=== PATIENT | male | born 1970 | race Hispanic/Latino ===

== ENCOUNTER 2021-10-10 18:31 | Inpatient (IN) | payer BC ==
[~2021-10-10] VITALS: Ht 165.1 cm; Wt 80.1 kg
[2021-10-10 19:51] LABS: APPEARANCE,URINE Cloudy (CLEAR); BILIRUBIN,URINE Negative (NEGATIVE); COLOR,URINE Dark Yellow (YELLOW); GLUCOSE, URINE (UA) Negative (NEGATIVE); KETONES,URINE 15 mg/dL (NEGATIVE); LEUKOCYTE ESTERASE ,URINE Small (NEGATIVE); NITRATE,URINE Negative (NEGATIVE); OCCULT BLOOD,URINE Negative (NEGATIVE); PH,URINE 5.5 (5.0-8.0); PROTEIN,URINE POS 1+ mg/dL (NEGATIVE)
[2021-10-10 20:00] LABS: AMPHET/METH SCREEN,URINE NEGATIVE (NEGATIVE); BARBITURATE SCREEN, URINE NEGATIVE (NEGATIVE); BENZODIAZEPINES SCREEN,URINE NEGATIVE (NEGATIVE); CANNABINOID SCREEN,URINE NEGATIVE (NEGATIVE); COCAINE SCREEN,URINE NEGATIVE (NEGATIVE); OPIATE SCREEN,URINE NEGATIVE (NEGATIVE); PHENCYCLIDINE SCREEN,URINE NEGATIVE (NEGATIVE)
[2021-10-10 20:00] LABS: BASOPHILS % (AUTO) 0.3 % (0.0-5.0); EOSINOPHILS % (AUTO) 0.8 % (0.0-8.0); HEMATOCRIT 27.2 % (42-54); LYMPHOCYTES % (AUTO) 11.1 % (21.0-51.0); MEAN CORPUSCULAR HEMOGLOBIN 19.8 pg (27.0-33.0); MEAN CORPUSCULAR HGB CONC 28.7 g/dL (32.0-36.0); MEAN CORPUSCULAR VOLUME 69.2 fL (79-99); MONOCYTES % (AUTO) 8.1 % (3.0-13.0); NEUTROPHILS % (AUTO) 79.2 % (40.0-77.0); PLATELET COUNT (AUTO) 463 K/uL (130-400); RED BLOOD CELL COUNT(AUTO) 3.93 MIL/uL (4.50-6.20); RED CELL DISTRIBUTION WIDTH 17.8 % (11.0-15.5); WHITE BLOOD COUNT (AUTO) 9.2 K/uL (4.8-10.8)
[2021-10-10 20:01] LABS: BACTERIA,URINE Few /HPF (None Seen); MUCUS,URINE Moderate LPF (None Seen); RBC,URINE 0-1 /HPF (0-1); SQUAMOUS EPITHELIAL CELL,UR Moderate /HPF (0-2)
[2021-10-10 20:18] LABS: CARBON DIOXIDE 32 mmol/L (21-32); CHLORIDE 103 mmol/L (101-111); CREATININE 1.3 mg/dL (0.5-1.5); GLUCOSE,RANDOM 111 mg/dL (70-105); POTASSIUM 3.6 mmol/L (3.5-5.1); SODIUM SERUM 139 mmol/L (136-145); UREA NITROGEN, BLOOD 18 mg/dL (7-18)
[2021-10-10 20:19] LABS: GLOMERULAR FILTR. RATE CALC 62 mL/min (>60)
[2021-10-10 20:23] LABS: ALANINE AMINOTRANSFERASE 18 U/L (12-78); ALBUMIN 3.4 g/dL (3.5-5.0); ASPARTATE AMINOTRANSFERASE 18 U/L (10-37); BILIRUBIN,TOTAL 0.4 mg/dL (0.2-1.0); CREATINE KINASE, TOTAL 41 U/L (21-232); TOTAL PROTEIN, SERUM 7.3 g/dL (6.0-8.3)
[2021-10-10 20:26] LABS: LIPASE < 50 U/L (114-286)
[2021-10-10] MEDS ORDERED: HYDRALAZINE 20MG/ML VIAL IV PRN (21:30)
[2021-10-10] MEDS ORDERED: HYDROCODONE/ACETAMINOPHEN 5/325 MG TAB PO PRN ×2 (21:30)
[2021-10-10] MEDS ORDERED: ONDANSETRON 4MG INJ IV PRN (21:30)
[2021-10-10] MEDS ORDERED: MAG/ALUM/SIMETH 30 ML UDCUP PO PRN (21:30)
[2021-10-10] MEDS ORDERED: DIPHENHYDRAMINE HCL 25 MG CAPSULE PO PRN (21:30)
[2021-10-10] MEDS ORDERED: LACTULOSE 20 GM/30 ML UDCUP PO PRN (21:30)
[2021-10-10] MEDS ORDERED: NITROGLYCERIN 0.4 MG SL TAB SL PRN (21:30)
[2021-10-10] MEDS ORDERED: GUAIFENESIN-DM 200/20 MG 10 ML PO PRN (21:30)
[2021-10-10] MEDS: 0.9%NACL 1000ML 1,000 ML IV SCH (21:59)
[2021-10-10 22:55] LABS: % IRON SATURATION 2.6 % (30-44)
[2021-10-11] MEDS ORDERED: GADOTERATE MEGLUMINE 10 MMOL/20 ML VIAL IV ONE (06:50)
[2021-10-11] MEDS: INSULIN HUMULIN R 100 UNIT/ML 3ML SQ SCH ×4 (07:30→20:25)
[2021-10-11 08:54] LABS: HEMOGLOBIN A1C 6.9 % (4.0-6.0)
[2021-10-11] MEDS: FAMOTIDINE 20MG VIAL IV SCH ×2 (08:54→20:05)
[2021-10-11 08:55] LABS: CHOLESTEROL 147 mg/dL (<200); HDL CHOLESTEROL 34 mg/dL (29-71); LDL DIRECT 93 mg/dL (0-99); TRIGLYCERIDES 108 mg/dL (30-200)
[2021-10-11 09:37] VITALS: BP 144/83
[2021-10-11] MEDS ORDERED: ASPIRIN 81 MG EC TAB PO SCH (10:00)
[2021-10-11] MEDS ORDERED: CLOPIDOGREL 75MG TAB PO SCH (10:00)
[2021-10-11] MEDS: 0.9%NACL 1000ML 1,000 ML IV SCH ×3 (10:10→20:05)
[2021-10-11 11:20] VITALS: BP 133/77
[2021-10-11 15:42] VITALS: BP 137/90
[2021-10-11 19:00] VITALS: BP 132/81
[2021-10-11] MEDS ORDERED: IOHEXOL 350 MG/ML 100ML INFUS..BTL IV ONE (19:33)
[2021-10-11] MEDS: ATORVASTATIN 40 MG TABLET PO SCH (20:05)
[2021-10-11] MEDS ORDERED: ATORVASTATIN 20 MG TABLET PO SCH (21:00)
[2021-10-12] VITALS: BP 144/88
[2021-10-12 04:00] VITALS: BP 142/85
[2021-10-12 06:12] LABS: BASOPHILS % (AUTO) 0.3 % (0.0-5.0); HEMATOCRIT 23.9 % (42-54); LYMPHOCYTES % (AUTO) 16.2 % (21.0-51.0); MEAN CORPUSCULAR HGB CONC 29.3 g/dL (32.0-36.0); MEAN CORPUSCULAR VOLUME 68.3 fL (79-99); MONOCYTES % (AUTO) 8.6 % (3.0-13.0); NEUTROPHILS % (AUTO) 72.5 % (40.0-77.0); PLATELET COUNT (AUTO) 453 K/uL (130-400); RED CELL DISTRIBUTION WIDTH 17.7 % (11.0-15.5); WHITE BLOOD COUNT (AUTO) 7.5 K/uL (4.8-10.8)
[2021-10-12] MEDS: 0.9%NACL 1000ML 1,000 ML IV SCH (06:12)
[2021-10-12] MEDS: INSULIN HUMULIN R 100 UNIT/ML 3ML SQ SCH ×4 (06:12→21:00)
[2021-10-12 06:40] LABS: ALBUMIN 2.9 g/dL (3.5-5.0); BILIRUBIN,TOTAL 0.3 mg/dL (0.2-1.0); CREATININE 1.3 mg/dL (0.5-1.5); POTASSIUM 3.6 mmol/L (3.5-5.1); TOTAL PROTEIN, SERUM 6.5 g/dL (6.0-8.3)
[2021-10-12 07:24] LABS: HEMATOCRIT 20.9 % (42-54)
[2021-10-12 07:48] VITALS: BP 130/77
[2021-10-12] MEDS: FAMOTIDINE 20MG VIAL IV SCH ×2 (09:54→21:06)
[2021-10-12] MEDS ORDERED: 0.9% NACL 250ML 250 ML ONE (11:44)
[2021-10-12 12:10] VITALS: BP 122/56
[2021-10-12 15:55] LABS: HEMATOCRIT 25.4 % (42-54)
[2021-10-12 16:18] VITALS: BP 116/73
[2021-10-12 19:00] VITALS: BP 146/82
[2021-10-12] MEDS: ATORVASTATIN 40 MG TABLET PO SCH (21:06)
[2021-10-12 21:59] LABS: HEMATOCRIT 29.1 % (42-54)
[2021-10-13] VITALS (7 sets, daily range): BP systolic 125–146; BP diastolic 82–92
[2021-10-13] MEDS: 0.9%NACL 1000ML 1,000 ML IV SCH ×2 (00:16→21:20)
[2021-10-13 05:11] LABS: HEMATOCRIT 24.3 % (42-54)
[2021-10-13] MEDS: INSULIN HUMULIN R 100 UNIT/ML 3ML SQ SCH ×4 (06:34→21:00)
[2021-10-13] MEDS: FAMOTIDINE 20MG VIAL IV SCH ×2 (08:37→21:19)
[2021-10-13] MEDS: ATORVASTATIN 40 MG TABLET PO SCH (21:19)
[2021-10-14 04:12] VITALS: BP 115/73
[2021-10-14] MEDS: 0.9%NACL 1000ML 1,000 ML IV SCH ×2 (06:08→19:39)
[2021-10-14] MEDS: INSULIN HUMULIN R 100 UNIT/ML 3ML SQ SCH ×4 (06:43→21:00)
[2021-10-14 07:35] VITALS: BP 113/74
[2021-10-14] MEDS: FAMOTIDINE 20MG VIAL IV SCH ×2 (09:00→19:39)
[2021-10-14 11:35] VITALS: BP 112/69
[2021-10-14 15:35] VITALS: BP 132/78
[2021-10-14 16:26] LABS: BASOPHILS % (AUTO) 0.2 % (0.0-5.0); EOSINOPHILS % (AUTO) 2.3 % (0.0-8.0); HEMATOCRIT 30.7 % (42-54); LYMPHOCYTES % (AUTO) 12.2 % (21.0-51.0); MEAN CORPUSCULAR HEMOGLOBIN 20.7 pg (27.0-33.0); MEAN CORPUSCULAR HGB CONC 29.3 g/dL (32.0-36.0); MEAN CORPUSCULAR VOLUME 70.7 fL (79-99); MONOCYTES % (AUTO) 6.9 % (3.0-13.0); PLATELET COUNT (AUTO) 514 K/uL (130-400); RED BLOOD CELL COUNT(AUTO) 4.34 MIL/uL (4.50-6.20); RED CELL DISTRIBUTION WIDTH 19.3 % (11.0-15.5); WHITE BLOOD COUNT (AUTO) 9.3 K/uL (4.8-10.8)
[2021-10-14 16:54] LABS: THYROID STIMULATING HORMONE 2.37 uIU/mL (0.36-3.74)
[2021-10-14 17:02] LABS: % IRON SATURATION 2.4 % (30-44)
[2021-10-14] MEDS ORDERED: EPOETIN ALFA-EPBX (NON-ESRD) 10,000 UNIT/ML VIAL SQ SCH (17:30)
[2021-10-14] MEDS: IRON SUCROSE COMPLEX 400 MG in 0.9% NACL 250ML 250 ML IV SCH (17:55)
[2021-10-14] MEDS: ATORVASTATIN 40 MG TABLET PO SCH (19:39)
[2021-10-14 20:00] VITALS: BP 90/56
[2021-10-15] VITALS (7 sets, daily range): BP systolic 116–155; BP diastolic 75–99
[2021-10-15] MEDS: INSULIN HUMULIN R 100 UNIT/ML 3ML SQ SCH ×4 (05:28→20:58)
[2021-10-15] MEDS: CLOPIDOGREL 75MG TAB PO SCH (10:04)
[2021-10-15] MEDS: FAMOTIDINE 20MG VIAL IV SCH ×2 (10:04→20:49)
[2021-10-15] MEDS: ASPIRIN 81 MG EC TAB PO SCH (10:04)
[2021-10-15] MEDS ORDERED: COMPOUND IV MISC 1 EACH IVSOLN MISC PRN (12:00)
[2021-10-15] MEDS: 0.9%NACL 1000ML 1,000 ML IV SCH (12:01)
[2021-10-15] MEDS ORDERED: ASPIRIN 81MG CHEW TAB PO SCH (13:30)
[2021-10-15] MEDS ORDERED: CLOPIDOGREL 75MG TAB PO SCH (13:30)
[2021-10-15] MEDS: SUCRALFATE 1 GM TABLET PO SCH ×2 (14:49→20:52)
[2021-10-15] MEDS: IRON SUCROSE COMPLEX 400 MG in 0.9% NACL 250ML 250 ML IV SCH (16:47)
[2021-10-15] MEDS: PANTOPRAZOLE 40 MG TAB DR PO SCH (20:49)
[2021-10-15] MEDS: ATORVASTATIN 40 MG TABLET PO SCH (20:49)
[2021-10-16] MEDS: SUCRALFATE 1 GM TABLET PO SCH ×4 (02:45→20:54)
[2021-10-16 03:12] VITALS: BP 143/83
[2021-10-16 04:55] LABS: BASOPHILS % (AUTO) 0.3 % (0.0-5.0); EOSINOPHILS % (AUTO) 1.9 % (0.0-8.0); LYMPHOCYTES % (AUTO) 11.8 % (21.0-51.0); MEAN CORPUSCULAR HEMOGLOBIN 20.5 pg (27.0-33.0); MEAN CORPUSCULAR VOLUME 70.8 fL (79-99); MONOCYTES % (AUTO) 9.5 % (3.0-13.0); NEUTROPHILS % (AUTO) 75.5 % (40.0-77.0); PLATELET COUNT (AUTO) 530 K/uL (130-400); RED BLOOD CELL COUNT(AUTO) 4.24 MIL/uL (4.50-6.20); RED CELL DISTRIBUTION WIDTH 20.2 % (11.0-15.5); WHITE BLOOD COUNT (AUTO) 9.5 K/uL (4.8-10.8)
[2021-10-16 05:07] LABS: CREATININE 1.2 mg/dL (0.5-1.5)
[2021-10-16] MEDS: INSULIN HUMULIN R 100 UNIT/ML 3ML SQ SCH ×4 (06:17→20:59)
[2021-10-16 07:30] VITALS: BP 129/82
[2021-10-16] MEDS ORDERED: CLOPIDOGREL 75MG TAB PO SCH (09:00)
[2021-10-16] MEDS: ASPIRIN 81 MG EC TAB PO SCH (09:00)
[2021-10-16] MEDS: ASPIRIN 81MG CHEW TAB PO SCH (09:23)
[2021-10-16] MEDS: PANTOPRAZOLE 40 MG TAB DR PO SCH ×2 (09:24→20:54)
[2021-10-16] MEDS: CLOPIDOGREL 75MG TAB PO SCH (09:24)
[2021-10-16] MEDS: FAMOTIDINE 20MG VIAL IV SCH ×2 (09:24→20:54)
[2021-10-16 10:05] LABS: HEMATOCRIT 29.8 % (42-54)
[2021-10-16] MEDS ORDERED: ONDANSETRON 4MG TABLET PO PRN (10:30)
[2021-10-16 11:00] VITALS: BP 108/76
[2021-10-16] MEDS ORDERED: MAGNESIUM CITRATE 296 ML SOLUTION PO SCH (14:00)
[2021-10-16 16:00] VITALS: BP 111/80
[2021-10-16] MEDS: IRON SUCROSE COMPLEX 400 MG in 0.9% NACL 250ML 250 ML IV SCH (16:42)
[2021-10-16 17:58] LABS: HEMATOCRIT 29.1 % (42-54)
[2021-10-16 19:00] VITALS: BP 126/88
[2021-10-16] MEDS ORDERED: LACTATED RINGERS 1000ML 1,000 ML IV SCH (19:30)
[2021-10-16] MEDS: ATORVASTATIN 40 MG TABLET PO SCH (20:54)
[2021-10-17] VITALS: BP 108/78
[2021-10-17] MEDS: SUCRALFATE 1 GM TABLET PO SCH ×4 (02:00→20:51)
[2021-10-17 04:00] VITALS: BP 110/71
[2021-10-17 05:16] LABS: BASOPHILS % (AUTO) 0.3 % (0.0-5.0); EOSINOPHILS % (AUTO) 2.5 % (0.0-8.0); LYMPHOCYTES % (AUTO) 12.8 % (21.0-51.0); MEAN CORPUSCULAR HEMOGLOBIN 20.8 pg (27.0-33.0); MEAN CORPUSCULAR HGB CONC 29.3 g/dL (32.0-36.0); MEAN CORPUSCULAR VOLUME 71.1 fL (79-99); MONOCYTES % (AUTO) 9.9 % (3.0-13.0); NEUTROPHILS % (AUTO) 73.4 % (40.0-77.0); PLATELET COUNT (AUTO) 494 K/uL (130-400); RED BLOOD CELL COUNT(AUTO) 3.94 MIL/uL (4.50-6.20); RED CELL DISTRIBUTION WIDTH 20.8 % (11.0-15.5); WHITE BLOOD COUNT (AUTO) 9.2 K/uL (4.8-10.8)
[2021-10-17 05:39] LABS: CREATININE 1.2 mg/dL (0.5-1.5); POTASSIUM 3.9 mmol/L (3.5-5.1)
[2021-10-17] MEDS: INSULIN HUMULIN R 100 UNIT/ML 3ML SQ SCH ×4 (06:55→20:59)
[2021-10-17 08:00] VITALS: BP 113/77
[2021-10-17] MEDS: PANTOPRAZOLE 40 MG TAB DR PO SCH ×2 (09:00→20:51)
[2021-10-17] MEDS: FAMOTIDINE 20MG VIAL IV SCH ×2 (09:00→20:51)
[2021-10-17] MEDS: ASPIRIN 81MG CHEW TAB PO SCH (09:00)
[2021-10-17] MEDS: ASPIRIN 81 MG EC TAB PO SCH (09:00)
[2021-10-17 11:00] VITALS: BP 113/71
[2021-10-17 16:00] VITALS: BP 115/79
[2021-10-17] MEDS: IRON SUCROSE COMPLEX 400 MG in 0.9% NACL 250ML 250 ML IV SCH (17:47)
[2021-10-17 20:20] VITALS: BP 137/72
[2021-10-17] MEDS: DEXTROSE 5 % AND 0.9 % NACL 1,000 ML IV SCH (20:49)
[2021-10-17] MEDS: ATORVASTATIN 40 MG TABLET PO SCH (20:51)
[2021-10-18] VITALS (7 sets, daily range): BP systolic 102–138; BP diastolic 64–87
[2021-10-18] MEDS: SUCRALFATE 1 GM TABLET PO SCH ×4 (02:00→21:50)
[2021-10-18 04:37] LABS: BASOPHILS % (AUTO) 0.3 % (0.0-5.0); EOSINOPHILS % (AUTO) 2.8 % (0.0-8.0); HEMATOCRIT 31.4 % (42-54); LYMPHOCYTES % (AUTO) 11.3 % (21.0-51.0); MEAN CORPUSCULAR HEMOGLOBIN 21.2 pg (27.0-33.0); MEAN CORPUSCULAR HGB CONC 28.7 g/dL (32.0-36.0); MEAN CORPUSCULAR VOLUME 74.1 fL (79-99); MONOCYTES % (AUTO) 8.8 % (3.0-13.0); NEUTROPHILS % (AUTO) 75.4 % (40.0-77.0); PLATELET COUNT (AUTO) 538 K/uL (130-400); RED BLOOD CELL COUNT(AUTO) 4.24 MIL/uL (4.50-6.20); RED CELL DISTRIBUTION WIDTH 21.7 % (11.0-15.5); WHITE BLOOD COUNT (AUTO) 9.9 K/uL (4.8-10.8)
[2021-10-18 04:49] LABS: CREATININE 1.4 mg/dL (0.5-1.5); POTASSIUM 3.5 mmol/L (3.5-5.1)
[2021-10-18] MEDS: INSULIN HUMULIN R 100 UNIT/ML 3ML SQ SCH ×4 (06:43→21:00)
[2021-10-18] MEDS: PANTOPRAZOLE 40 MG TAB DR PO SCH ×2 (10:04→21:48)
[2021-10-18] MEDS: FAMOTIDINE 20MG VIAL IV SCH ×2 (10:04→21:48)
[2021-10-18] MEDS: ASPIRIN 81 MG EC TAB PO SCH (10:33)
[2021-10-18] MEDS: DEXTROSE 5 % AND 0.9 % NACL 1,000 ML IV SCH ×2 (11:10→21:48)
[2021-10-18 11:31] LABS: INR 1.14 (0.85-1.15); PROTHROMBIN TIME 12.3 SEC (9.6-11.6)
[2021-10-18 11:32] LABS: PARTIAL THROMBOPLASTIN TIME 40.4 SEC (26.3-35.5)
[2021-10-18] MEDS: ATORVASTATIN 40 MG TABLET PO SCH (21:48)
[2021-10-19 03:39] VITALS: BP 121/74
[2021-10-19] MEDS: SUCRALFATE 1 GM TABLET PO SCH ×4 (04:42→20:52)
[2021-10-19] MEDS: INSULIN HUMULIN R 100 UNIT/ML 3ML SQ SCH ×4 (05:53→20:32)
[2021-10-19 06:24] LABS: BASOPHILS % (AUTO) 0.4 % (0.0-5.0); EOSINOPHILS % (AUTO) 2.5 % (0.0-8.0); HEMATOCRIT 26.1 % (42-54); LYMPHOCYTES % (AUTO) 11.9 % (21.0-51.0); MEAN CORPUSCULAR HEMOGLOBIN 21.7 pg (27.0-33.0); MEAN CORPUSCULAR HGB CONC 29.5 g/dL (32.0-36.0); MEAN CORPUSCULAR VOLUME 73.5 fL (79-99); MONOCYTES % (AUTO) 10.2 % (3.0-13.0); NEUTROPHILS % (AUTO) 73.7 % (40.0-77.0); PLATELET COUNT (AUTO) 455 K/uL (130-400); RED BLOOD CELL COUNT(AUTO) 3.55 MIL/uL (4.50-6.20); RED CELL DISTRIBUTION WIDTH 22.3 % (11.0-15.5); WHITE BLOOD COUNT (AUTO) 8.4 K/uL (4.8-10.8)
[2021-10-19 06:36] LABS: CREATININE 1.3 mg/dL (0.5-1.5); POTASSIUM 3.5 mmol/L (3.5-5.1)
[2021-10-19 08:00] VITALS: BP 121/69
[2021-10-19] MEDS: PANTOPRAZOLE 40 MG TAB DR PO SCH ×2 (08:57→20:51)
[2021-10-19] MEDS: FAMOTIDINE 20MG VIAL IV SCH ×2 (08:58→20:51)
[2021-10-19 12:00] VITALS: BP 123/76
[2021-10-19 16:00] VITALS: BP 127/86
[2021-10-19] MEDS ORDERED: ASPIRIN 81 MG EC TAB PO ONE (16:30)
[2021-10-19 20:05] VITALS: BP 139/85
[2021-10-19] MEDS: ATORVASTATIN 40 MG TABLET PO SCH (20:51)
[2021-10-19 23:52] VITALS: BP 121/66
[2021-10-20] MEDS: SUCRALFATE 1 GM TABLET PO SCH ×4 (02:09→20:25)
[2021-10-20 03:37] VITALS: BP 100/65
[2021-10-20 05:52] LABS: HEMATOCRIT 28.9 % (42-54)
[2021-10-20 06:02] LABS: CREATININE 1.2 mg/dL (0.5-1.5); POTASSIUM 3.7 mmol/L (3.5-5.1)
[2021-10-20 06:03] LABS: INR 1.1 (0.85-1.15); PROTHROMBIN TIME 11.9 SEC (9.6-11.6)
[2021-10-20 06:04] LABS: PARTIAL THROMBOPLASTIN TIME 33.1 SEC (26.3-35.5)
[2021-10-20] MEDS: INSULIN HUMULIN R 100 UNIT/ML 3ML SQ SCH ×4 (06:31→20:24)
[2021-10-20 08:00] VITALS: BP 125/73
[2021-10-20] MEDS: PANTOPRAZOLE 40 MG TAB DR PO SCH ×2 (08:53→20:25)
[2021-10-20] MEDS: FAMOTIDINE 20MG VIAL IV SCH ×2 (08:53→20:25)
[2021-10-20] MEDS: ASPIRIN 81 MG EC TAB PO SCH (10:23)
[2021-10-20 11:49] VITALS: BP 102/71
[2021-10-20] MEDS ORDERED: ACETAMINOPHEN 325 MG TAB PO PRN (14:00)
[2021-10-20] MEDS ORDERED: TRAMADOL HCL 50 MG TABLET PO PRN (14:00)
[2021-10-20 16:00] VITALS: BP 122/84
[2021-10-20 20:00] VITALS: BP 119/78
[2021-10-20] MEDS: ATORVASTATIN 40 MG TABLET PO SCH (20:25)
[2021-10-21] VITALS (14 sets, daily range): BP systolic 91–143; BP diastolic 60–86
[2021-10-21] MEDS: SUCRALFATE 1 GM TABLET PO SCH ×4 (02:00→21:00)
[2021-10-21] MEDS: INSULIN HUMULIN R 100 UNIT/ML 3ML SQ SCH ×4 (06:24→21:00)
[2021-10-21 07:30] LABS: BASOPHILS % (AUTO) 0.3 % (0.0-5.0); EOSINOPHILS % (AUTO) 2.2 % (0.0-8.0); HEMATOCRIT 31.4 % (42-54); MEAN CORPUSCULAR HEMOGLOBIN 22.1 pg (27.0-33.0); MEAN CORPUSCULAR HGB CONC 29.3 g/dL (32.0-36.0); MEAN CORPUSCULAR VOLUME 75.3 fL (79-99); MONOCYTES % (AUTO) 7.1 % (3.0-13.0); NEUTROPHILS % (AUTO) 74.1 % (40.0-77.0); PLATELET COUNT (AUTO) 566 K/uL (130-400); RED BLOOD CELL COUNT(AUTO) 4.17 MIL/uL (4.50-6.20); RED CELL DISTRIBUTION WIDTH 24.2 % (11.0-15.5); WHITE BLOOD COUNT (AUTO) 9.9 K/uL (4.8-10.8)
[2021-10-21 07:40] LABS: CREATININE 1.6 mg/dL (0.5-1.5); POTASSIUM 3.7 mmol/L (3.5-5.1)
[2021-10-21] MEDS ORDERED: POTASSIUM CHLORIDE 20MEQ/100ML 100 ML IV PRN ×2 (09:00)
[2021-10-21] MEDS ORDERED: KCL 20 MEQ ERTAB PO PRN (09:00)
[2021-10-21] MEDS ORDERED: LIDOCAINE HCL-MPF 1% 2ML VIAL IV PRN ×2 (09:00)
[2021-10-21] MEDS ORDERED: POTASSIUM CHLORIDE 10% ELIXIR 20 MEQ/15 ML UDCUP PO PRN (09:00)
[2021-10-21] MEDS: PANTOPRAZOLE 40 MG TAB DR PO SCH ×2 (09:00→21:00)
[2021-10-21] MEDS: ASPIRIN 81 MG EC TAB PO SCH (10:30)
[2021-10-21] MEDS: FAMOTIDINE 20MG VIAL IV SCH ×2 (11:27→21:00)
[2021-10-21] MEDS ORDERED: LIDOCAINE HCL 1% MDV 50ML VIAL ONE (12:14)
[2021-10-21] MEDS ORDERED: IODIXANOL 320 MG/ML 100 ML VIAL ONE (12:14)
[2021-10-21] MEDS ORDERED: FENTANYL CITRATE PF 50 MCG/1 ML 2ML VIAL ONE (12:56)
[2021-10-21] MEDS ORDERED: MIDAZOLAM HCL 1 MG/ML 2ML VIAL ONE (12:56)
[2021-10-21] MEDS: ATORVASTATIN 40 MG TABLET PO SCH (21:00)
[2021-10-21] MEDS ORDERED: HYDROCODONE/ACETAMINOPHEN 10/325 MG TAB PO PRN (22:00)
[2021-10-22] VITALS: BP 119/73
[2021-10-22] MEDS: SUCRALFATE 1 GM TABLET PO SCH ×4 (02:09→20:33)
[2021-10-22 04:00] VITALS: BP 119/73
[2021-10-22] MEDS: INSULIN HUMULIN R 100 UNIT/ML 3ML SQ SCH ×4 (06:46→20:30)
[2021-10-22 08:36] VITALS: BP 121/78
[2021-10-22] MEDS: PANTOPRAZOLE 40 MG TAB DR PO SCH ×2 (09:18→20:33)
[2021-10-22] MEDS: FAMOTIDINE 20MG VIAL IV SCH ×2 (09:18→20:34)
[2021-10-22] MEDS: ASPIRIN 81 MG EC TAB PO SCH (09:24)
[2021-10-22 10:48] VITALS: BP 121/78
[2021-10-22] MEDS ORDERED: AEC81 PO (11:37)
[2021-10-22] MEDS ORDERED: CLOP75TA14 PO (11:37)
[2021-10-22] MEDS ORDERED: ATOR40TA69 PO (11:37)
[2021-10-22] MEDS ORDERED: PANT40TA PO (11:37)
[2021-10-22 15:40] VITALS: BP 124/76
[2021-10-22 20:00] VITALS: BP 120/80
[2021-10-22] MEDS: ATORVASTATIN 40 MG TABLET PO SCH (20:33)
[2021-10-23] VITALS (7 sets, daily range): BP systolic 115–131; BP diastolic 59–97
[2021-10-23] MEDS: SUCRALFATE 1 GM TABLET PO SCH ×4 (01:57→20:02)
[2021-10-23] MEDS: INSULIN HUMULIN R 100 UNIT/ML 3ML SQ SCH ×4 (06:20→21:00)
[2021-10-23] MEDS: PANTOPRAZOLE 40 MG TAB DR PO SCH ×2 (10:10→20:02)
[2021-10-23] MEDS: FAMOTIDINE 20MG VIAL IV SCH ×2 (10:11→20:02)
[2021-10-23] MEDS: ASPIRIN 81 MG EC TAB PO SCH (11:39)
[2021-10-23] MEDS ORDERED: CLOPIDOGREL 75MG TAB PO SCH (14:30)
[2021-10-23] MEDS: ATORVASTATIN 40 MG TABLET PO SCH (20:02)
[2021-10-24] MEDS: SUCRALFATE 1 GM TABLET PO SCH ×2 (02:00→10:00)
[2021-10-24 04:00] VITALS: BP 127/76
[2021-10-24] MEDS: INSULIN HUMULIN R 100 UNIT/ML 3ML SQ SCH ×2 (06:51→11:30)
[2021-10-24 08:00] VITALS: BP 117/82
[2021-10-24] MEDS: FAMOTIDINE 20MG VIAL IV SCH (10:00)
[2021-10-24] MEDS: ASPIRIN 81 MG EC TAB PO SCH (10:00)
[2021-10-24] MEDS: PANTOPRAZOLE 40 MG TAB DR PO SCH (10:00)
[2021-10-24 12:00] VITALS: BP 132/71
== END 2021-10-24 19:30 | disposition home or self-care (01) | DRG 65 ==
LOC: EDH 18:31 → EDHIP 21:22 → 3DH 10-11 09:12
PROVIDERS: ADMIT Hospitalist; ATTEND Hospitalist
PROC: 30233N1 Transfusion of Nonautologous Red Blood Cells into Peripheral Vein, Percutaneous Approach (ICD-10-PCS; principal; 2021-10-12)
PROC: 0T9030Z Drainage of Right Kidney with Drainage Device, Percutaneous Approach (ICD-10-PCS; 2021-10-22)
DX: I63.512 Cerebral infarction due to unspecified occlusion or stenosis of left middle cerebral artery (principal); D62 Acute posthemorrhagic anemia; G81.91 Hemiplegia, unspecified affecting right dominant side; N13.30 Unspecified hydronephrosis; K92.2 Gastrointestinal hemorrhage, unspecified; E11.9 Type 2 diabetes mellitus without complications; I10 Essential (primary) hypertension; R63.4 Abnormal weight loss; Z68.29 Body mass index [BMI] 29.0-29.9, adult; D50.9 Iron deficiency anemia, unspecified; Z20.822 Contact with and (suspected) exposure to COVID-19; R29.702 NIHSS score 2
CPT/HCPCS: 10030; 36415; 36430; 50432; 70450; 70496; 70498; 70544; 70549; 70553; 71045; 72156; 74018; 74176; 74400; 76700; 76770; 80048; 80053; 80061; 80305; 81001; 82270; 82550; 82607; 82728; 82746; 82948; 83036; 83540; 83550; 83690; 84153; 84443; 84484; 85014; 85018; 85025; 85045; 85610; 85730; 86850; 86900; 86901; 86923; 87088; 87635; 92522; 92610; 93005; 93356; 93880; 96374; 97039; 99156; 99157; C1729; C1894; C8929; G0378; J1644; J1756; J1815; J2250; J3010; J3490; J7030; J7042; J7050; P9016; Q9967